=== PATIENT | female | born 2000 | race Hispanic/Latino ===

== ENCOUNTER 2018-12-23 11:17 | Outpatient (CLI) | payer OTHER ==
--- NOTE | 2018-12-23 14:41 | ULT ---
ULTRASOUND OBSTETRICAL COMPLETE: DATE: 12/23/2018 HISTORY: 18-year-old female presents for supervision of normal in second trimester, evaluat e anatomy. FINDINGS: number: alcaraz lie: Cephalic Maternal cervix: 3.5 cm. Closed. Placenta: Posterior fundal. No previa. Amniotic fluid volume: PASTORA = 13cm heart rate: 155 bpm The following anatomy is visualized, with no evidence of anomalies: Head, cerebellum, lateral ventricles, four-chamber heart, stomach, kidneys, cord insertion, bladder, cervical spine, thoracic spine, lumbar spine, sacrum, upper extremities, lower extreme venous, and three-vessel cord. Nose and lips not well visualized. biometry: Biparietal diameter (BPD): 4.8 cm 20 w 3 d Head circumference (HC): 17.5 cm 20 w 0 d Abdominal circumference (AC): 16.2 cm 21 w 2 d Femur length (FL): 3.5 cm 21 w 0 d Average ultrasound age (AUA): 20 w 3 d Estimated date of delivery (TRACY): 05/09/2019 Estimated weight (EFW): 391 g +/- 58 g IMPRESSION: 1) Live 2nd trimester intrauterine gestation. 2) Estimated gestational age of 20 weeks, 3 days 3) Vertex lie. 4) nose and lips not well visualized due to position. 5) otherwise No anatomic abnormality identified.
== END 2018-12-23 11:18 | disposition home or self-care (01) ==
LOC: SCSULT 11:17
PROVIDERS: ATTEND Family Medicine
DX: Z34.82 Encounter for supervision of other normal pregnancy, second trimester (principal); Z3A.20 20 weeks gestation of pregnancy
CPT/HCPCS: 76805

== ENCOUNTER 2019-05-04 10:47 | Inpatient (IN) | payer OTHER ==
[2019-05-04 11:29] VITALS: BMI 30.4
[2019-05-04] MEDS: Lactated Ringer's 1,000 ML IV SCH ×2 (15:41→18:19)
[2019-05-04] MEDS ORDERED: NS / Oxytocin 40 units/1000ml 1,000 ML IV PRN (16:10)
[2019-05-04] MEDS ORDERED: hydrALAZINE 20 MG/ML VIAL SLOW IVP PRN ×2 (16:10→20:09)
[2019-05-04] MEDS ORDERED: Lidocaine 1% (PF) 30 ML VIAL SC PRN (16:10)
[2019-05-04] MEDS ORDERED: Ibuprofen 800 MG TAB PO PRN (16:10)
[2019-05-04] MEDS ORDERED: Butorphanol Tartrate 1 MG/ML VIAL SLOW IVP PRN (16:10)
[2019-05-04] MEDS ORDERED: HYDROcodone/Acetaminophen 5/325 mg Tablet PO PRN ×4 (16:10→20:09)
[2019-05-04] MEDS ORDERED: Ondansetron PF 4 MG/2 ML Vial IVP PRN ×3 (16:10→20:09)
[2019-05-04] MEDS ORDERED: Lactated Ringer's 1,000 ML IV SCH (16:15)
[2019-05-04] MEDS ORDERED: Fentanyl 4 mcg/Bup 0.1% Cadd 100 ML ONE (16:17)
[2019-05-04 16:26] LABS: Hemoglobin 11.3 g/dL (12.0-16.0); Mean Corpuscular HGB CONC 33.5 g/dL (32.0-36.0); Mean Corpuscular Hemoglobin 27.9 pg (25.0-35.0); Mean Corpuscular Volume 83.2 fL (78.0-98.0); Mean Platelet Volume 8.8 fL (7.4-10.4); Platelet Count 284 thou/uL (130-400); RBC Distribution Width 13.3 % (11.5-14.5); Red Blood Cell (RBC) Count 4.06 mill/uL (4.00-5.20); White Blood Cell (WBC) Count 13.1 thou/uL (4.8-10.8)
[2019-05-04 16:55] LABS: HBSAg Index 0.18 S/CO (0-0.99); Hep B Surf Ag Non-Reactive S/CO (NonReactive); Syphilis Antibody Nonreactive (Nonreactive); Syphilis Antibody Index 0.27 S/CO (<1.00 Non-Reactive)
[2019-05-04] MEDS ORDERED: Acetaminophen 325 MG TAB PO PRN (18:02)
[2019-05-04] MEDS ORDERED: Promethazine HCl 25 MG/ML VIAL IM PRN (18:02)
[2019-05-04] MEDS ORDERED: diphenhydrAMINE 50 MG/ML VIAL IVP PRN (18:02)
[2019-05-04] MEDS ORDERED: Naloxone HCl 0.4 mg/ml Vial IVP PRN ×2 (18:02)
[2019-05-04] MEDS ORDERED: Lactated Ringer's 500 ML IV PRN (18:02)
[2019-05-04] MEDS ORDERED: ePHEDrine/0.9% NaCl/PF SYRINGE 50 mg/10 ml SLOW IVP PRN (18:02)
[2019-05-04] MEDS ORDERED: Communication Order-Pharmacy FS SCH (18:15)
[2019-05-04] MEDS ORDERED: Fentanyl 4 mcg/Bupivacaine 0.1% Cassette 100 ML EPIDURAL SCH (18:15)
[2019-05-04] MEDS ORDERED: Lanolin Ointment 7 GM TUBE TOP PRN (20:09)
[2019-05-04] MEDS ORDERED: Milk Of Magnesia 30 ML UDCUP PO PRN (20:09)
[2019-05-04] MEDS ORDERED: Preparation H Ointment 28 GM TUBE PR PRN (20:09)
[2019-05-04] MEDS ORDERED: Benzocaine-Menthol 82.5 ML CAN TOP PRN (20:09)
[2019-05-04] MEDS ORDERED: Bisacodyl 10 MG SUPP PR PRN (20:09)
[2019-05-04] MEDS ORDERED: NS / Oxytocin 40 units/1000ml 1,000 ML IV SCH (20:09)
[2019-05-04] MEDS ORDERED: diphenhydrAMINE 25 MG CAP PO PRN (20:09)
[2019-05-04] MEDS: Ibuprofen 800 MG TAB PO SCH (23:13)
[2019-05-04] MEDS: Docusate Calcium (SURFAK) 240 MG CAP PO SCH (23:13)
[2019-05-05] MEDS: Docusate Calcium (SURFAK) 240 MG CAP PO SCH ×3 (01:02→21:23)
[2019-05-05] MEDS: Ibuprofen 800 MG TAB PO SCH ×4 (01:02→21:23)
[2019-05-05] MEDS ORDERED: Sodium Chloride 0.9% 10 ML ONE (06:16)
[2019-05-05] MEDS: Ferrous Sulfate 325 MG TAB PO SCH ×2 (08:06→17:19)
[2019-05-05] MEDS: Prenatal Vitamin 1 TAB PO SCH (08:06)
[2019-05-05] MEDS ORDERED: Adacel (T-DAP) 0.5 ML SYRINGE IM ONE (09:00)
[2019-05-06] MEDS: Ibuprofen 800 MG TAB PO SCH ×2 (04:53→14:25)
[2019-05-06] MEDS: Prenatal Vitamin 1 TAB PO SCH (09:12)
[2019-05-06] MEDS: Ferrous Sulfate 325 MG TAB PO SCH (10:33)
[2019-05-06] MEDS: Docusate Calcium (SURFAK) 240 MG CAP PO SCH (10:33)
[2019-05-06 11:25] VITALS: BP 110/54; TEMP 98.3
== END 2019-05-06 15:05 | disposition home or self-care (01) | DRG 807 ==
LOC: L&D/OP 10:47 → L&D 16:28 → 3SW 22:00
PROVIDERS: ADMIT Obstetrics & Gynecology; ATTEND Obstetrics & Gynecology
PROC: 10E0XZZ Delivery of Products of Conception, External Approach (ICD-10-PCS; principal; 2019-05-04)
PROC: 0HQ9XZZ Repair Perineum Skin, External Approach (ICD-10-PCS; 2019-05-04)
DX: O71.82 Other specified trauma to perineum and vulva (principal); Z37.0 Single live birth; Z3A.39 39 weeks gestation of pregnancy
CPT/HCPCS: 85027; 86780; 87340

== ENCOUNTER 2019-06-08 18:42 | Emergency (ER) | payer OTHER ==
[~2019-06-08 18:42] MED LIST: Iopamidol-370 76% 500 ML 1 ML ONE
[2019-06-08] MEDS ORDERED: Lidocaine 1% w/Epinephrine 1:100K 20 ML VIAL ONE (20:52)
[2019-06-08 21:49] LABS: #Basophils 0.1 thou/uL (0.0-0.2); #Eosinphils 0.2 thou/uL (0.0-0.7); #Lymphocytes 2.6 thou/uL (1.20-3.40); #Monocytes 0.8 thou/uL (0.11-0.59); #Neutrophils 9.3 thou/uL (1.40-6.50); %Basophils 0.5 % (0.0-1.0); %Eosinophils 1.8 % (0.0-10.0); %Monocytes 6.1 % (0.0-4.0); %Neutrophils 71.6 % (31.0-61.0); Hemoglobin 13.3 g/dL (12.0-16.0); Mean Corpuscular HGB CONC 32.1 g/dL (32.0-36.0); Mean Corpuscular Hemoglobin 27.6 pg (25.0-35.0); Mean Corpuscular Volume 85.9 fL (78.0-98.0); Mean Platelet Volume 8.8 fL (7.4-10.4); Platelet Count 218 thou/uL (130-400); RBC Distribution Width 15.8 % (11.5-14.5); Red Blood Cell (RBC) Count 4.82 mill/uL (4.00-5.20); White Blood Cell (WBC) Count 12.9 thou/uL (4.8-10.8)
[2019-06-08 22:13] LABS: ALT (SGPT) 100 U/L (8-55); AST (SGOT) 66 U/L (5-34); Albumin 4.4 g/dL (3.5-5.0); Alkaline Phosphatase 112 U/L (40-100); Anion Gap 17 mmol/L (10-20); BUN (Urea Nitrogen) 14 mg/dL (7.0-18.7); Bilirubin, Total 0.4 mg/dL (0.2-1.2); Calc. Creatinine Clearance 0 mL/min (70-130); Calcium 9.1 mg/dL (7.8-10.44); Carbon Dioxide 23 mmol/L (22-29); Chloride 105 mmol/L (98-107); Estimated GFR-MDRD Greater than 90; Globulin 3.3 g/dL (2.4-3.5); Glucose 69 mg/dL (70-105); Protein, Total 7.7 g/dL (6.0-8.3); Sodium 141 mmol/L (136-145)
[2019-06-08 22:22] LABS: BHCG - Serum Negative (NEGATIVE); Pregs Control Background? CLEAR/WHITE (CLR/WHITE); Pregs Control Bar Appear? YES (CONTROL BAR)
[2019-06-08] MEDS ORDERED: Morphine 4 MG/ML VIAL ONE (22:44)
[2019-06-08] MEDS ORDERED: Ondansetron PF 4 MG/2 ML Vial ONE (22:44)
[2019-06-08] MEDS ORDERED: Piperacillin/Tazobactam 4.5 GM VIAL ONE (22:46)
--- NOTE | 2019-06-08 22:52 | CT ---
CT Pelvis W Con HISTORY: Abscess to buttocks region. COMPARISON: None. FINDINGS: The appendix is normal. No pelvic masses or fluid collections. There is a small perianal fluid collection with air measuring approximately 10 x 20 mm in size slight ly to the right of midline. No other significant findings. IMPRESSION: Small perianal abscess slightly to the right of midline and posterior to the anus.
== END 2019-06-08 23:50 | disposition home or self-care (01) ==
LOC: ERS 18:42
DX: K61.0 Anal abscess (principal)
CPT/HCPCS: 36415; 46050; 72193; 80053; 83605; 84703; 85025; 87040; 96365; 96375; J2270; J2405; J2543; Q9967

== ENCOUNTER 2021-03-01 19:03 | Inpatient (IN) | payer OTHER ==
[2021-03-01] MEDS ORDERED: Lidocaine Viscous Sol 2% 15 ml UD Cup ONE (21:00)
[2021-03-01] MEDS ORDERED: Mag-Al 1200 mg/1200 mg/30 ML UDCUP ONE (21:00)
[2021-03-01 21:19] LABS: Hemoglobin 13.3 g/dL (12.0-16.0); Mean Corpuscular HGB CONC 33.7 g/dL (32.0-36.0); Mean Corpuscular Hemoglobin 31.6 pg (27.0-31.0); Mean Corpuscular Volume 93.8 fL (78.0-98.0); Mean Platelet Volume 7.8 fL (7.4-10.4); Platelet Count 257 thou/uL (130-400); RBC Distribution Width 11.6 % (11.5-14.5); Red Blood Cell (RBC) Count 4.19 mill/uL (4.20-5.40); White Blood Cell (WBC) Count 21.9 thou/uL (4.8-10.8)
[2021-03-01 21:29] LABS: Bacteria/HPF None Seen HPF (None Seen); Bilirubin Negative (Negative); Blood, Urine 3+ (Negative); Clarity Clear (Clear); Glucose, Urine (Dipstick) Normal (Negative); Ketone, Urine Negative (Negative); Leukocyte Negative Leu/uL (Negative); Nitrite Negative (Negative); Protein, Urine (Dipstick) 10 mg/dL (Neg-Trace); RBC/HPF Greater than 50 HPF (0-3); Specific Gravity, Urine 1.033 (1.002-1.036); Squamous Epithelial 0-3 HPF (0-3); Urobilinogen Normal mg/dL (Less than 2); WBC/HPF 0-3 HPF (0-3); pH, Urine 6.5 (5.0-9.0)
[2021-03-01 21:30] LABS: ALT (SGPT) 96 U/L (8-55); AST (SGOT) 185 U/L (5-34); Alkaline Phosphatase 102 U/L (40-110); Anion Gap 13 mmol/L (10-20); BUN (Urea Nitrogen) 15 mg/dL (7.0-18.7); Bilirubin, Total 0.6 mg/dL (0.2-1.2); Calc. Creatinine Clearance 0 mL/min (70-130); Carbon Dioxide 24 mmol/L (22-29); Chloride 107 mmol/L (98-107); Globulin 2.8 g/dL (2.4-3.5); Glucose 104 mg/dL (70-105); Lipase 37 U/L (8-78); Potassium 3.6 mmol/L (3.5-5.1); Protein, Total 6.8 g/dL (6.0-8.3); Sodium 140 mmol/L (136-145)
[2021-03-01 21:36] LABS: Pregnancy Test - Urine (BHCG) Negative (Negative); Pregu Control Background? CLEAR/WHITE (CLR/WHITE); Pregu Control Bar Appear? YES (CONTROL BAR); Specific Gravity 1.033 (1.002-1.036)
[2021-03-01 21:37] LABS: Band 11 % (5-11); Eosinophils 1 % (0-10); Lymphocytes 11 % (21-51); MDiff Complete? YES; Monocytes 7 % (0-10); Neutrophil 70 % (42-75)
[2021-03-01] MEDS ORDERED: Piperacillin/Tazobactam 4.5 GM VIAL ONE (23:45)
[2021-03-02 01:09] VITALS: BMI 31.4
[2021-03-02] MEDS: Sodium Chloride 0.9% 1,000 ML IV SCH ×4 (02:14→20:15)
[2021-03-02 02:35] LABS: SARS-CoV-2 NAA Rapid Test Not Detected (NotDetected)
[2021-03-02] MEDS ORDERED: cefOXitin 2 GM in Sodium Chloride 0.9% 100 ML IVPB SCH (08:45)
[2021-03-02] MEDS ORDERED: cefOXitin Sodium/Dextrose 2 GM/50 ML BAG ONE (12:18)
[2021-03-02] MEDS ORDERED: Iothalamate Meglumine 60% 50 ML VIAL FS ONE (13:09)
[2021-03-02] MEDS ORDERED: EPINEPHrine 1 MG/ML AMP ONE (13:09)
[2021-03-02] MEDS ORDERED: Bupivacaine 0.25% HCL 30 ML VIAL ONE (13:09)
[2021-03-02] MEDS ORDERED: Fentanyl 100 MCG/2 ML VIAL ONE ×3 (13:14→15:23)
[2021-03-02] MEDS ORDERED: Glycopyrrolate 0.2 MG/ML 5 ML SYRINGE ONE (13:32)
[2021-03-02] MEDS ORDERED: PROPOFOL 200 MG/20 ML VIAL ONE (13:32)
[2021-03-02] MEDS ORDERED: Dexamethasone 20 MG/5 ML VIAL ONE (13:32)
[2021-03-02] MEDS ORDERED: Ketorolac Tromethamine 30 MG/ML VIAL ONE (13:32)
[2021-03-02] MEDS ORDERED: Ondansetron PF 4 MG/2 ML Vial ONE (13:32)
[2021-03-02] MEDS ORDERED: Rocuronium Bromide 10 MG/ML (10ML VIAL) ONE (13:32)
[2021-03-02] MEDS ORDERED: Lidocaine 1% PF 5 ML VIAL ONE (13:32)
[2021-03-02] MEDS ORDERED: Morphine 4 MG/ML VIAL SLOW IVP PRN (14:42)
[2021-03-02] MEDS ORDERED: hydrALAZINE 20 MG/ML VIAL SLOW IVP PRN (14:42)
[2021-03-02] MEDS ORDERED: Promethazine HCl 25 MG/ML VIAL IM PRN ×2 (14:42→14:55)
[2021-03-02] MEDS ORDERED: Dextrose 50% Abboject 50 ML SYRINGE SLOW IVP PRN (14:42)
[2021-03-02] MEDS ORDERED: HYDROcodone/Acetaminophen 10/325 mg Tablet PO PRN ×2 (14:42)
[2021-03-02] MEDS ORDERED: Morphine 2 MG/ML VIAL SLOW IVP PRN (14:42)
[2021-03-02] MEDS ORDERED: Mag-Al 1200 mg/1200 mg/30 ML UDCUP PO PRN (14:42)
[2021-03-02] MEDS ORDERED: Ondansetron PF 4 MG/2 ML Vial IVP PRN (14:42)
[2021-03-02] MEDS ORDERED: Calcium Carbonate 500 MG ChewTAB PO PRN (14:42)
[2021-03-02] MEDS ORDERED: Dextrose 5% in Water 1,000 ML IV PRN (14:42)
[2021-03-02] MEDS ORDERED: Meperidine HCl/PF 25 MG/ML VIAL SLOW IVP PRN (14:55)
[2021-03-02] MEDS ORDERED: Ondansetron HCl/PF 4 MG/2 ML Vial IVP PRN (14:55)
[2021-03-02] MEDS ORDERED: Promethazine HCl 25 MG/ML VIAL IVPB PRN (14:55)
[2021-03-02] MEDS ORDERED: HYDROmorphone 2 MG/ML VIAL SLOW IVP PRN (14:55)
[2021-03-02] MEDS ORDERED: Meperidine HCl/PF 25 MG/ML VIAL ONE (15:01)
[2021-03-02] MEDS ORDERED: Promethazine HCl 25 MG/ML VIAL ONE (15:30)
[2021-03-02] MEDS: Ketorolac Tromethamine 30 MG/ML VIAL IVP SCH ×2 (18:50→23:48)
[2021-03-02] MEDS: Famotidine 20 MG TAB PO SCH (20:10)
[2021-03-02] MEDS: Famotidine/PF 20 mg/2ml Vial SLOW IVP SCH (20:14)
[2021-03-03] MEDS: Sodium Chloride 0.9% 1,000 ML IV SCH (05:36)
[2021-03-03] MEDS: Ketorolac Tromethamine 30 MG/ML VIAL IVP SCH (05:37)
[2021-03-03 07:04] LABS: #Lymphocytes 1.9 thou/uL (1.20-3.40); #Neutrophils 10.8 thou/uL (1.40-6.50); %Basophils 0.3 % (0.0-1.0); %Lymphocytes 13.9 % (21.0-51.0); %Monocytes 7.4 % (0.0-10.0); %Neutrophils 78.3 % (42.0-75.0); Hemoglobin 12.4 g/dL (12.0-16.0); Mean Corpuscular HGB CONC 32.2 g/dL (32.0-36.0); Mean Corpuscular Hemoglobin 30.5 pg (27.0-31.0); Mean Corpuscular Volume 94.5 fL (78.0-98.0); Mean Platelet Volume 8.2 fL (7.4-10.4); Platelet Count 252 thou/uL (130-400); RBC Distribution Width 11.7 % (11.5-14.5); Red Blood Cell (RBC) Count 4.07 mill/uL (4.20-5.40); White Blood Cell (WBC) Count 13.8 thou/uL (4.8-10.8)
[2021-03-03 07:26] LABS: ALT (SGPT) 483 U/L (8-55); AST (SGOT) 188 U/L (5-34); Albumin 3.3 g/dL (3.5-5.0); Alkaline Phosphatase 141 U/L (40-110); Anion Gap 6 mmol/L (10-20); BUN (Urea Nitrogen) 6 mg/dL (7.0-18.7); Bilirubin, Total 0.4 mg/dL (0.2-1.2); Calc. Creatinine Clearance 175 mL/min (70-130); Calcium 7.9 mg/dL (7.8-10.44); Carbon Dioxide 24 mmol/L (22-29); Chloride 110 mmol/L (98-107); Globulin 2.4 g/dL (2.4-3.5); Glucose 196 mg/dL (70-105); Lipase 15 U/L (8-78); Potassium 4.2 mmol/L (3.5-5.1); Protein, Total 5.7 g/dL (6.0-8.3); Sodium 136 mmol/L (136-145)
[2021-03-03] MEDS: Famotidine 20 MG TAB PO SCH (08:50)
[2021-03-03] MEDS ORDERED: Enoxaparin Sodium 30 MG/0.3 ML SYRINGE SC SCH (09:00)
[2021-03-03] MEDS: Famotidine/PF 20 mg/2ml Vial SLOW IVP SCH (09:04)
[2021-03-03 12:16] VITALS: BP 126/76; TEMP 99.4
== END 2021-03-03 12:10 | disposition home or self-care (01) | DRG 419 ==
LOC: ERS 19:03 → SURG B 23:27
PROVIDERS: ADMIT Surgery; ATTEND Surgery
PROC: 0FT44ZZ Resection of Gallbladder, Percutaneous Endoscopic Approach (ICD-10-PCS; principal; 2021-03-01)
PROC: BF131ZZ Fluoroscopy of Gallbladder and Bile Ducts using Low Osmolar Contrast (ICD-10-PCS; 2021-03-01)
DX: K80.00 Calculus of gallbladder with acute cholecystitis without obstruction (principal); Z20.822 Contact with and (suspected) exposure to COVID-19; E66.9 Obesity, unspecified; Z68.31 Body mass index [BMI] 31.0-31.9, adult; Z98.890 Other specified postprocedural states
CPT/HCPCS: 36415; 47532; 76705; 80053; 81003; 81015; 81025; 83690; 85025; 87040; 88304; 96365; J0171; J0694; J1100; J1650; J1885; J2175; J2405; J2543; J2550; J2704; J3010; J7050; Q9961; S0020; U0002

== ENCOUNTER 2025-04-10 13:08 | Emergency (ER) | payer OTHER, SELFPAY ==
[2025-04-10] MEDS ORDERED: Iopamidol-370 76% 500 ML MDV (1 ML CHARGE) ONE (13:10)
[2025-04-10] MEDS ORDERED: Ondansetron PF 4 MG/2 ML Vial ONE ×2 (13:49→17:23)
[2025-04-10 13:52] LABS: #Basophils 0.05 10x3/uL (0.0-0.2); #Eosinophils 0.16 10x3/uL (0.0-0.7); #Monocytes 0.90 10x3/uL (0.11-0.59); #Neutrophils 7.86 10x3/uL (1.40-6.50); %Basophils 0.4 % (0.0-1.0); %Eosinophils 1.4 % (0.0-10.0); %Lymphocytes 22.6 % (21.0-51.0); %Monocytes 7.7 % (0.0-10.0); %Neutrophils 67.6 % (42.0-75.0); Hematocrit 40.8 % (36.0-47.0); Hemoglobin 13.2 g/dL (12.0-16.0); Mean Corpuscular Hemoglobin 29.0 pg (27.0-31.0); Mean Corpuscular Volume 89.7 fL (78.0-98.0); Platelet Count 256 10x3/uL (130-400); Red Blood Cell (RBC) Count 4.55 mill/uL (4.20-5.40); White Blood Cell (WBC) Count 11.63 10x3/uL (4.8-10.8)
[2025-04-10 14:09] LABS: ALT (SGPT) 77 U/L (Less than 34); AST (SGOT) 85 U/L (11-34); Albumin 4.0 g/dL (3.1-4.5); Alkaline Phosphatase 107 U/L (40-110); Anion Gap 15 mmol/L (10-20); BUN (Urea Nitrogen) 16 mg/dL (7.0-18.7); Bilirubin, Total 0.3 mg/dL (0.3-1.2); Calc. Creatinine Clearance 0 mL/min (70-130); Calcium 8.8 mg/dL (7.8-10.44); Carbon Dioxide 20 mmol/L (22-29); Chloride 106 mmol/L (98-107); Globulin 3.5 g/dL (2.4-3.5); Glucose 74 mg/dL (70-105); Lipase 20 U/L (8-78); Potassium 4.0 mmol/L (3.5-5.1); Sodium 137 mmol/L (136-145)
[2025-04-10 14:16] LABS: Pregnancy Test - Urine (BHCG) Negative (Negative); Pregu Control Background? CLEAR/WHITE (CLR/WHITE); Pregu Control Bar Appear? YES (CONTROL BAR)
[2025-04-10 14:17] LABS: Bacteria/HPF None Seen HPF (None Seen); CAUTI Indications for Culture Pelvic or flank pain; Glucose, Urine (Dipstick) Normal (Negative); Leukocyte 75 Leu/uL (Negative); Protein, Urine (Dipstick) 10 mg/dL (Neg-Trace); RBC/HPF 0-3 HPF (0-3); Specific Gravity, Urine 1.031 (1.002-1.036); WBC/HPF 0-3 HPF (0-3)
[2025-04-10 14:19] LABS: Urine Culture Reflex No No
[2025-04-10] MEDS ORDERED: Ketorolac Tromethamine 30 MG (1 mL) VIAL ONE (14:29)
== END 2025-04-10 21:35 | disposition home or self-care (01) ==
LOC: ERS 13:08
DX: N83.201 Unspecified ovarian cyst, right side (principal)
CPT/HCPCS: 74177; 76856; 80053; 81001; 81025; 83690; 85025; 96374; 96375; 96376; J1885; J2270; J2405; Q9967